=== PATIENT | male | born 1940 | race Caucasian/White ===

== ENCOUNTER 2020-03-13 09:16 | Inpatient (IN) | payer OTHER ==
[~2020-03-13] VITALS: Ht 152.4 cm; Wt 64.4 kg
[2020-03-13 09:18] VITALS: BP 196/112
[2020-03-13 09:36] LABS: BE(vivo) 2.9 mmol/L (-2 to +3); HCO3 34.1 mmol/L (22.0-26.0); PCO2 87.9 mmHg (35.0-45.0); PO2 99.4 mmHg (80.0-100.0); pH 7.207 (7.360-7.450); sO2 95.8 % (92.0-98.0)
[2020-03-13 09:54] LABS: HEMATOCRIT 42.7 % (42.0-52.0); HEMOGLOBIN 14.2 gm/dL (14.0-18.0); MCH 30.4 pg (26.0-34.0); MCHC 33.3 g/dL (28.0-37.0); MCV 91.5 fL (80.0-100.0); RBC 4.66 mil/uL (4.50-6.00); RDW 13.8 % (10.5-14.5); WBC 12.4 thou/uL (4.0-11.0)
[2020-03-13 10:07] LABS: ANION GAP 8 mmol/L (7-16); BUN 18 mg/dL (7-18); CALCIUM 9.3 mg/dL (8.5-10.1); CHLORIDE 101 mmol/L (98-107); CO2 34 mmol/L (21-32); GLUCOSE 188 mg/dL (74-106); POTASSIUM 4.2 mmol/L (3.5-5.1); SODIUM 143 mmol/L (136-145)
[2020-03-13 10:13] LABS: TROPONIN-I <0.06 ng/mL (<0.06)
[2020-03-13] MEDS ORDERED: NORVASC5 M1 PO (10:58)
[2020-03-13] MEDS ORDERED: SYMBICORT80 MCG/4.1 INH (10:59)
[2020-03-13] MEDS ORDERED: FLONASE 0.05%50 MCG NASAL (10:59)
[2020-03-13] MEDS ORDERED: REMERON 30 MG T30 MG PO (11:00)
[2020-03-13] MEDS ORDERED: ENSURE PLUS237 ML PO (11:00)
[2020-03-13] MEDS ORDERED: MELATONIN3 M1 PO (11:00)
[2020-03-13 11:08] LABS: BE(vivo) 3.8 mmol/L (-2 to +3); HCO3 31.5 mmol/L (22.0-26.0); PCO2 60.6 mmHg (35.0-45.0); PO2 74.4 mmHg (80.0-100.0); pH 7.334 (7.360-7.450); sO2 93.7 % (92.0-98.0)
[2020-03-13 12:27] VITALS: BP 113/74
[2020-03-13 19:00] VITALS: BP 146/81
[2020-03-13 19:56] VITALS: BP 172/91
--- NOTE | 2020-03-13 23:00 | EKG ---
[facility] [place] [address] ELECTROCARDIOGRAM REPORT Name: JOSUÉ BRAY Room #: 358- ADM IN M.R.#: [id number] Admission: 03/13/20 Attend Phys: Gerry Penaloza MD Discharge: Date of : 42 Report #: [id number] THIS REPORT FOR: cc: Physician not on staff Physician not on staff Sukhjinder Koo MD [facility] THIS REPORT FOR: //name// [facility] ED Test Date: 2020-03-13 Test Time: 09:57:55 Pat Name: JOSUÉ BRAY Department: Room: [facility] Gender: M Mail Carrier: [facility] : 1940 Requested By: Zach Dickens Order Number: [id number] MD: Sukhjinder Koo Measurements Intervals [place] Rate: 117 P: 84 PA: 184 QRS: 24 QRSD: 127 T: 74 QT: 308 QTc: 430 Interpretive Statements Sinus tachycardia Atrial premature complex Consider right atrial enlargement Artifact in lead(s) I,II,aVF,V1,V2,V3,V4,V5,V6 No previous ECG available for comparison Electronically Signed On 03-13-2020 23:00:08 CDT by Sukhjinder Koo [email or web address] <ELECTRONICALLY SIGNED> By: Sukhjinder Koo MD, FAC 03/13/20 2300 0957 [id number] Sukhjinder Koo MD, [facility] /EPI
--- NOTE | 2020-03-14 03:59 | NUR ---
PT LYING IN BED. DENIES PAIN. VOIDING PER URINAL. RESTING COMFORTABLY. NO NEEDS VOICED. CALL LIGHT WITHIN REACH. FREQUENT OBSERVATION.
[2020-03-14 04:41] VITALS: BP 114/61
[2020-03-14 07:44] VITALS: BP 141/75
[2020-03-14 11:30] VITALS: BP 142/73
--- NOTE | 2020-03-14 15:29 | NUR ---
ASSUMED PATIENT CARE AT 0700. A/O X4 VSS. TOLERATED ON RA. REFUSED FLU SHOT. DC TO HOME NOW.
[2020-03-14 16:45] VITALS: BP 134/73
--- NOTE | 2020-03-14 16:50 | NUR ---
ASSUMED PATIENT CARE AT 0700. A/O X4 TOLERATED ON 3L/NC. NO PE FROM CTA. UP STABBY. PROGRESSING TOWARDS POC GOALS.
[2020-03-14 20:06] VITALS: BP 151/62
[2020-03-15 05:11] VITALS: BP 132/68
[2020-03-15 07:28] VITALS: BP 147/80
[2020-03-15 11:59] VITALS: BP 147/77
--- NOTE | 2020-03-15 15:23 | NUR ---
ASSUMED PATIENT CARE THIS AM AT APPROXIMATELY 0700. PATIENT AWAKE ALERT ORIENTED X4. ON 3LNC AND IN NO ACUTE DISTRESS, ASSESSMENT AND MEDICATIONS CHARTED. PATIENT REFUSED FLU VACCINE THIS AM. STATES THAT HE NEVER TAKES FLU VACCINE. PATIENT VSS. ISOLATION PRECAUTIONS DISCONTINUED AND AWAITING ROOM ASSIGMENT WHEN AVALIABLE. PATIENT TOLERATING MEALS WELL THIS SHIFT. URINATING WELL. NO COMPLAINTS OF PAIN. SOME SOB/ WHEZING NOTED AT REST. STATES BREATHING TREATMENTS HELP WITH SOB. WILL CONTINUE WITH PLAN OF CARE
[2020-03-15 16:17] VITALS: BP 149/79
--- NOTE | 2020-03-15 18:32 | NUR ---
Received pt from [facility], vs stable, came up on the bed. IV fluids continued kept comfortable on the bed. POC followed no signs or verbalizations of distress noted. endorsed to the night nurse.
[2020-03-15 20:10] VITALS: BP 180/94
[2020-03-15 23:45] VITALS: BP 156/80
--- NOTE | 2020-03-16 02:21 | NUR ---
ASSUMED PT CARE AROUND 1930. AXOX4. ELEVATED BP REPORTED AND NEW ORDERS RECEIVED. NO S/S ACUTE DISTRESS NOTED OR REPORTED AT THIS TIME. WILL CONT TO MONITOR FOR ANY CHANGES IN CONDITION.
[2020-03-16 10:43] VITALS: BP 167/90
[2020-03-16 17:03] VITALS: BP 177/73
--- NOTE | 2020-03-16 20:07 | NUR ---
PT A&OX4, VSS, DENIES PAIN. PATIENT CONTINUES ON 3L OF OXYGEN. IV PATENT, PT USES URINAL. NO SIGNS OF DISTRESS. WILL CONTINUE TO MONITOR.
[2020-03-16 20:19] VITALS: BP 140/87
--- NOTE | 2020-03-17 05:31 | NUR ---
Assumed pt care at 1900. A/OX4,VSS.Up with AX1/RW. LS coarse with copius yellow sputum noted;sputum cx obtained. Pt denied pain on assessment. Voiding per urinal. NSR on telemetry. Fall precautions in place,reminded to call for help as needed and agreebla to. Resting quietly at this time w/o distress noted,oxygen on at 3L/NC,will continue to monitor pt.
[2020-03-17 07:59] VITALS: BP 165/90
--- NOTE | 2020-03-17 11:14 | NUR ---
Chart reviewed and case discussed with the care team. Attempted to see the pt in his room;however pt getting an ECHO this morning. PT raiza noted this morning. Pt lives independently in an indep living apt at [facility]. He has home o2 with a baseline of 3liters d/t COPD. He has a rwalker if needed but does not normally use it. He is a&ox4 and able to make his needs known to staff. He is improving and off bipap and on 2-4liters at this time. Covid test neg. Will follow along should a HH referral be indicated at [place].
--- NOTE | 2020-03-17 11:59 | 2DMMODE ---
[address] [place] [address] 2 D/M-MODE ECHOCARDIOGRAM Name: JOSUÉ BRAY Room #: 459-P ADM IN M.R.#: [id number] Admission: 03/13/20 Attend Phys: Gerry Penaloza MD Discharge: Date of : 42 Report #: [id number] THIS REPORT FOR: cc: Physician not on staff Physician not on staff Josh Caraballo MD ~ APPROVED REPORT Study performed: 03/17/2020 09:54:04 EXAM: Comprehensive 2D, Doppler, and color-flow Echocardiogram Patient Location: Bedside Room #: [facility] BSA: 1.75 HR: 78 bpm BP: 165/90 mmHg Rhythm: NSR Other Information Study Quality: Technically Difficult Technically limited study due to lung disease, inability to position patient. Indications Congestive Heart Failure COPD Dyspnea 2D Dimensions IVC: 21.00 mm Aortic Valve AoV Peak Aren.: 1.12 m/s AO Peak Gr.: 4.98 mmHg LVOT Max P.49 mmHg LVOT Max V: 0.79 m/s Mitral Valve E/A Ratio: 0.6 MV Decel. Time: 120.18 ms MV E Max Aren.: 0.76 m/s MV A Aren.: 1.18 m/s MV PHT: 34.85 ms IVRT: 87.66 ms [facility] [place] [address] 2 D/M-MODE ECHOCARDIOGRAM Name: JOSUÉ BRAY Room #: 459-P ADM IN M.R.#: [id number] Admission: 03/13/20 Attend Phys: Robert Powell Discharge: Date of : 42 Report #: [id number] Pulmonary Valve PV Peak Aren.: 1.08 m/s PV Peak Gr.: 4.67 mmHg Tricuspid Valve TR Peak Aren.: 2.65 m/s TR Peak Gr.: 28.10 mmHg PA Pressure: 38.00 mmHg Left Ventricle The left ventricle is normal size. There is normal left ventricular wall thickness. Left ventricular systolic function is low-normal. LVEF is 50%. Grade I - abnormal relaxation pattern. Right Ventricle Right ventricle is at the upper limits of normal. The right ventricular systolic function is normal. Atria The left atrium size is normal. Right atrium is at the upper limits of normal. Aortic Valve The aortic valve is normal in structure. Trace to mild aortic regurgitation. There is no aortic valvular stenosis. Mitral Valve The mitral valve is normal in structure. There is no mitral valve regurgitation noted. No evidence of mitral valve stenosis. Tricuspid Valve The tricuspid valve is normal in structure. There is mild tricuspid regurgitation. Estimated PAP 38 mmHg. Pulmonic Valve The pulmonary valve is normal in structure. There is no pulmonic valvular regurgitation. Great Vessels The aortic root is normal in size. IVC is dilated and collapses >50% with inspiration. Pericardium There is no pericardial effusion. <Conclusion> [facility] [address] [place] [address] 2 D/M-MODE ECHOCARDIOGRAM Name: JOSUÉ BRAY Room #: 459-P ADM IN M.R.#: [id number] Admission: 03/13/20 Attend Phys: Robert Powell Discharge: Date of : 42 Report #: [id number] The left ventricle is normal size. There is normal left ventricular wall thickness. Left ventricular systolic function is low-normal. LVEF is 50%. Right ventricle is at the upper limits of normal. The left atrium size is normal. Trace to mild aortic regurgitation. There is no mitral valve regurgitation noted. There is mild tricuspid regurgitation. Estimated PAP 38 mmHg. <ELECTRONICALLY SIGNED> By: Josh Caraballo MD 03/17/20 1158 1158 57 Josh Caraballo MD /INF
[2020-03-17 13:59] VITALS: BP 165/90
[2020-03-17 15:54] VITALS: BP 165/98
[2020-03-17 16:45] LABS: HEMATOCRIT 43.8 % (42.0-52.0); HEMOGLOBIN 14.9 gm/dL (14.0-18.0); MCH 30.7 pg (26.0-34.0); MCHC 33.9 g/dL (28.0-37.0); MCV 90.5 fL (80.0-100.0); RBC 4.84 mil/uL (4.50-6.00); RDW 13.7 % (10.5-14.5); WBC 8.4 thou/uL (4.0-11.0)
--- NOTE | 2020-03-17 17:04 | NUR ---
FAXED REFERRAL TO [facility] RECEIVED CONFIRMATION AND WILL F/U WITH AGENCY IN THE AM.
[2020-03-17 17:19] LABS: CALCIUM 8.9 mg/dL (8.5-10.1); CREATININE 0.7 mg/dL (0.7-1.3); POTASSIUM 4.9 mmol/L (3.5-5.1)
[2020-03-17 17:32] LABS: BE(vivo) 2.7 mmol/L (-2 to +3); HCO3 30.3 mmol/L (22.0-26.0); PCO2 59.1 mmHg (35.0-45.0); PO2 170.8 mmHg (80.0-100.0)
[2020-03-17 17:33] LABS: pH 7.328 (7.360-7.450)
[2020-03-17 19:30] VITALS: BP 149/67
--- NOTE | 2020-03-17 19:38 | NUR ---
Assumed pt care today, bp elevated managed with medications. On 3 lites of O2 via NC. Dyspnea present . Dr. Dowell came to visit in the pm, ordered labs and placed orders Critical labs called to Dr. Levy. Refused some meals, had dinner, pt stated he is feeling better late in the pm. Received a call from his case worked and she stated he was considering going hospice. Endorsed to the night nurse.
[2020-03-18 06:10] LABS: HEMATOCRIT 38.7 % (42.0-52.0); MCH 30.2 pg (26.0-34.0); MCHC 33.1 g/dL (28.0-37.0); MCV 91.3 fL (80.0-100.0); RBC 4.24 mil/uL (4.50-6.00); RDW 13.5 % (10.5-14.5); WBC 2.7 thou/uL (4.0-11.0)
[2020-03-18 06:18] LABS: HEMOGLOBIN 12.8 gm/dL (14.0-18.0)
[2020-03-18 06:26] LABS: CALCIUM 8.3 mg/dL (8.5-10.1); CREATININE 0.9 mg/dL (0.7-1.3); POTASSIUM 4.3 mmol/L (3.5-5.1)
[2020-03-18 07:39] LABS: BE(vivo) 6.1 mmol/L (-2 to +3); HCO3 33.2 mmol/L (22.0-26.0); PCO2 59.3 mmHg (35.0-45.0); PO2 81.5 mmHg (80.0-100.0); pH 7.366 (7.360-7.450); sO2 95.4 % (92.0-98.0)
--- NOTE | 2020-03-18 07:45 | NUR ---
Assumed pt care at 1900. A/OX4,VSS. Pt verbalized breathing/feeling much better on assessment. Denies pain on assessment. Up with SBA/RW. Fall precauitons in place. Didn't require BIPAP at night,remained on oxygen 3L/NC. New IV reinserted on LUE and IV abts infusing w/o problems. Resting quietly at this time w/o distress noted.
[2020-03-18 08:20] VITALS: BP 154/84
--- NOTE | 2020-03-18 08:31 | EKG ---
[facility] [address] [place] [address] ELECTROCARDIOGRAM REPORT Name: JOSUÉ BRAY Room #: 9- ADM IN M.R.#: [id number] Admission: 03/13/20 Attend Phys: Gerry Penaloza MD Discharge: Date of : 42 Report #: [id number] THIS REPORT FOR: cc: Physician not on staff Physician not on staff Sukhjinder Koo MD [facility] ~ THIS REPORT FOR: //name// [facility] Test Date: 2020-03-17 Test Time: 16:55:46 Pat Name: JOSUÉ BRAY Department: Room: [facility] Gender: M [employer] Web Developer: MARIELA : 1940 Requested By: Kimo Dowell Order Number: [id number] MD: Sukhjinder Koo Measurements Intervals [place] Rate: 97 P: 83 [place]: 184 QRS: 40 QRSD: 96 T: 62 QT: 334 QTc: 425 Interpretive Statements Sinus rhythm VINNIE Compared to ECG 03/13/2020 09:57:55 Sinus tachycardia no longer present Atrial premature complex(es) no longer present Electronically Signed On 03-18-2020 8:31:40 CDT by Sukhjinder Koo [email or web address] <ELECTRONICALLY SIGNED> By: Sukhjinder Koo MD, [facility] 03/18/20 0831 1655 1655 Sukhjinder Koo MD, [facility] /EPI
--- NOTE | 2020-03-18 13:46 | NUR ---
SPOKE WITH CIPRIANO FROM [facility] SHE WILL DO A BEDSIDE VISIT TOMORROW 03/19 AT 0900.
[2020-03-18 15:13] VITALS: BP 168/87
--- NOTE | 2020-03-18 16:20 | NUR ---
CARE TEAM INDICATED THAT PT IS PROGRESSING SLOWLY. [facility] IS TO BE COMING TOMORROW AM AT 9AM TO DO BEDSIDE EVAL AND INFORMATIONAL VISIT WITH PT. IT IS ANTICPATED THAT PT WILL DISCHARGE BACK TO [facility] WITH [facility] OVER THE WEEKEND. CM TO SET UP TRANSPORT. CM TO FOLLOW INDICATED WITH DC PLANNING.
[2020-03-18 19:55] VITALS: BP 147/66
--- NOTE | 2020-03-19 06:43 | NUR ---
VSS-AFEBRILE. LUNGS TIGHT AND DIMINISHED IN ALL PFEIFFER BILATERALLY. REMAINS ON 3LNC WHICH IS ALSO WHAT IS WORN AT HOME. NO C/O PAIN. CALLS APPROPRIATELY FOR ANY NEEDED ASSISTANCE. SMALL, FORMED BM THIS SHIFT.
[2020-03-19 08:15] VITALS: BP 160/85
[2020-03-19 11:58] VITALS: BP 165/90
--- NOTE | 2020-03-19 11:59 | NUR ---
CARE TEAM INDICATED THAT PT WILL LIKELY BE MEDICALLY STABLE TO DISCHARGE HOME BACK TO [facility] TOMORROW Sunday03/20/20. CM MET WITH PT AT BEDSIDE THIS DAY. PT IS AWARE AND AGREEABLE. [facility] MET WITH PT THIS AM AND PT INDICATED THAT HE ISN'T READY FOR HOSPICE SERVICES AT THIS TIME BUT WOULD LIKE TO USE [facility] FOR PT, OT, AND NURSING HH SERVICES. THEY CAN ACCEPT. CM NOTIFIED THEM HIS PCP IS DR. ALEXYS [place]. PT WAS GIVEN SOME CLOTHING TO DC HOME IN. PT WILL NEED TRANSPORT WITH O2 SET UP. HE IS AGREEABLE WITH [facility]. FAX ORDERS TO [facility] AND CALL [facility] ONCE READY. [facility]: P: F: [facility]: PT WILL NEED O2 AT
[2020-03-19 15:44] VITALS: BP 150/79
[2020-03-19 19:21] VITALS: BP 148/77
--- NOTE | 2020-03-19 19:54 | NUR ---
PT A&OX4, VSS, NO PAIN. PATIENT WORKED WITH PT/OT TODAY. HOSPICE IN TO EVALUATE PATIENT. PATIENT WILL GO HOME WITH HOME HEALTH INSTEAD. PATIENT ON 3L O2 BASELINE. NO SIGNS OF DISTRESS. WILL CONTINUE TO MONITOR.
[2020-03-19 23:06] LABS: HIV ANTIBODY Non Reactive (Non Reactive)
--- NOTE | 2020-03-20 06:26 | NUR ---
VSS-AFEBRILE. LUNGS TIGHT AND WHEEZY IN ALL PFEIFFER BILATERALLY. REMAINS ON 3LNC WHICH IS ALSO HOME SETTING. RESTED WELL THROUGH NIGHT WITH FEW NEEDS. NO COMPLAINTS OF PAIN. CALLS APPROPRIATELY FOR ANY NEEDED ASSISTANCE.
[2020-03-20 08:00] VITALS: BP 162/78
[2020-03-20 11:15] LABS: CALCIUM 8.5 mg/dL (8.5-10.1); CREATININE 0.8 mg/dL (0.7-1.3); POTASSIUM 3.7 mmol/L (3.5-5.1)
[2020-03-20 15:40] VITALS: BP 151/87
--- NOTE | 2020-03-20 18:23 | NUR ---
PT ASSESSED AT START OF SHIFT. PT BREATHING EVEN AND UNLABORED. CONJESTED LOOSE COUGH-SOME PRODUCTION AT TIMES. SPECIMEN SENT THIS AM. PT UP WALKING W/ RESP THERAPY. EATING AND DRINKING OK. HAD LOOSE BROWN BM. NO C/O PAIN.
--- NOTE | 2020-03-21 02:28 | NUR ---
VSS-AFEBRILE. REMAINS ON 2LNC AT REST AND 4LNC WITH ACTIVITY. SOA WITH EXERTION. OOB WITH SBA TO USE BSC, NO REPORTED BM THIS SHIFT. NO REPORTED PAIN. CALLS APPROPRIATELY FOR ANY NEEDED ASSISTANCE. FALL PRECAUTIONS IN PLACE.
[2020-03-21 07:39] VITALS: BP 177/86
[2020-03-21 19:12] VITALS: BP 156/86
--- NOTE | 2020-03-21 19:51 | NUR ---
Assumed pt care this am, has a O2 at 2L via NC at rest , then 4L with activity as per the pt. Dr. Penaloza mantioned his O2 sats are ok if they are in between 88 - 90%. SOA on exertion, used the commode, had a BM today. Diet and medicatiosn are well tolerated. POC followed with no signs or distress. JAKUB sheikh we put in by , pt refused to elave and mentioned he is still no ok, spoke to MD. Pt is to stay another day. Endorsed to the night nurse.
--- NOTE | 2020-03-22 03:01 | NUR ---
PATIENT AOX4 MAKES NEEDS KNOWN. PATIENT ON 2L OF OXYGEN O2 SAT IS 94%. NO SOA OR DISTRESS NOTED THIS SHIFT.PATIENT IS CONTIENT AND USES URINAL. FALL PRECAUTION IN PLACE, PATIENT IN BED ASLEEP AT THIS TIME BREATHING REGULAR AND UNLABOURED.
[2020-03-22 08:00] VITALS: BP 146/88
--- NOTE | 2020-03-22 13:39 | NUR ---
PT A&OX4, VSS, AFEBRILE, DENIES PAIN. PATIENT C/O OF BURNING WITH URINATION. OR FOR UA. PATIENT TOLERATING DIET. PATIENT ON 1 L O2 VIA RT SAT AT 94 PERCENT. PATIENT PARTICIPATED IN PT/OT. SINUS RHTHYM ON MONITOR. NO SIGNS OF DISTRESS. WILL CONTINUE TO MONITOR.
--- NOTE | 2020-03-22 14:54 | NUR ---
IT IS ANTICPATED THAT PT WILL BE ABLE TO RETURN TO HIS CT APARTMENT AT [facility] WITH [facility] ONCE MEDICALLY STABLE. PT WILL NEED [facility] ARRANGED AT DISCHARGE WITH HOME O2. [facility]: P: F: [facility]: PT WILL NEED O2 AT
[2020-03-22 15:30] VITALS: BP 150/97
[2020-03-22 17:30] LABS: URINE BILIRUBIN NEGATIVE (Negative); URINE BLOOD NEGATIVE (Negative); URINE CLARITY CLEAR; URINE COLOR YELLOW; URINE GLUCOSE-RANDOM* NEGATIVE (Negative); URINE KETONES NEGATIVE (Negative); URINE LEUKOCYTES NEGATIVE (Negative); URINE NITRITE NEGATIVE (Negative); URINE PROTEIN (DIPSTICK) NEGATIVE (Negative); URINE SPECIFIC GRAVITY 1.015 (1.005-1.035); URINE UROBILINOGEN 0.2 E.U./dl (0.2-1.0)
[2020-03-22 19:30] VITALS: BP 159/97
--- NOTE | 2020-03-23 05:02 | NUR ---
ASSUMED CARE OF PT AT 1900HRS. PT AOX4 AND LETS NEEDS BE KNOWN. FALL PRECAUTION IN PLACE. PT IS ON 1L O2 VIA NC. PT PLACED NPO AT GA FOR PROCEDURE IN THE AM. PT'S PAIN WITH URINATION IS IMPROVING. PT WAS ABLE TO GET COMFORTABLE AND SLEEP PART OF THE SHIFT. VSS AND NO S/S OF ACUTE DISTRESS. WILL CONTINUE TO MONITOR.
[2020-03-23 07:17] LABS: HEMATOCRIT 46.3 % (42.0-52.0); HEMOGLOBIN 15.3 gm/dL (14.0-18.0); MCH 29.9 pg (26.0-34.0); MCV 90.6 fL (80.0-100.0); PLATELET COUNT 259 thou/uL (150-400); RBC 5.11 mil/uL (4.50-6.00); RDW 13.8 % (10.5-14.5); WBC 5.3 thou/uL (4.0-11.0)
[2020-03-23 07:25] LABS: ALBUMIN 3.3 g/dL (3.4-5.0); CALCIUM 9.1 mg/dL (8.5-10.1); CREATININE 0.9 mg/dL (0.7-1.3); POTASSIUM 3.3 mmol/L (3.5-5.1); TOTAL BILIRUBIN 0.5 mg/dL (0.2-1.0); TOTAL PROTEIN 6.3 g/dL (6.4-8.2)
[2020-03-23 08:30] LABS: ABSOLUTE NEUTROPHILS 3.4 thou/uL (1.4-8.2)
[2020-03-23 08:31] LABS: METAMYELOCYTES 2 %
[2020-03-23 08:32] LABS: ANISOCYTOSIS SLIGHT
[2020-03-23 10:04] VITALS: BP 220/121
[2020-03-23 10:41] VITALS: BP 168/96
--- NOTE | 2020-03-23 12:22 | NUR ---
Bronchoscopy done this AM, left unit prior to initial assessment. When returned to unit after procedure HR 114-130, BP 200/121, O2 sats mid 80s on 3L FIO2. Alert, states he is having difficulty breathing. Resp very pronounced 24-28 with subcostal retractions. FIO2 increased, O2 sat increased to mid 90s. Breath sounds with very poor aeration with few barely audible wheezes. machine operator helper and Dr. Khalil notified. Reg HR, tachycardic up to 130s auscultated. Color very pink with brisk capillary and palpable peripheral pulses +2/+4. IV per L forearm, site soft and flat, saline locked. LR dced per verbal order from Dr. Khalil. Incontinent of yellow urine per pad. States it dumas when urinating. Small frequent amts of bright yellow urine. Alert and orientated, answering questions appropriately despite being SOB. Dr. Khalil here examining pt. States considering hospice, will order Mg, prednisone and xanax. Report given. per urinal. Active bowel sounds over soft, flat abdomen.
--- NOTE | 2020-03-23 15:14 | NUR ---
CARE TEAM INDICATED THAT PT ISN'T MEDICALLY STABLE TO DC BACK TO [facility] THIS DAY. PT IS NOW CONSENTING TO HOSPICE SERVICES. CM NOTIFIED CIPRIANO WITH [facility] AND SHE WILL VISIT WITH PT AGAIN TOMORROW AM SO THAT THEY CAN ORDER ANY NEEDED EQUIPTMENT. CM TO FOLLOW INDICATED WITH DC PLANNING.
[2020-03-23 16:59] VITALS: BP 136/94
[2020-03-23 19:23] VITALS: BP 135/72
--- NOTE | 2020-03-23 20:31 | NUR ---
ASSUMED CARE OF PATIENT AT 1200, REPORT RECEIVED FROM RICK VICTORIA/THERESE. PATIENT ALERT AND ORIENTED. PATIENT DENIES PAIN THIS SHIFT. PATIENT WENT DOWN FOR BRONCH THIS AM, WHEN PATIENT ARRIVED BACK FROM PROCEDURE, HE HAD ELEVATED B/P, LABORED BREATHING, ELEVATED HR. DR PLASCENCIA WAS NOTIFIED, HE WAS ON THE UNIT. NEW ORDER FOR XANAX 0.25 MG TID ORDERED. RT/DAPHNIE SAW THE PATIENT AROUND 1100 AND HE RECEIVED BREATHING TREATMENT. AFTER PATIENT RECEIVED XANAX, HE WENT TO SLEEP, BREATHING IMPROVED, O2 AT 2-3 LITERS/NC WAS IN PLACE. B/P WAS DOWN BY THE END OF THE SHIFT 140/78. WILL CONTINUE TO MONITOR.
[2020-03-23 23:55] VITALS: BP 161/88
--- NOTE | 2020-03-24 04:22 | NUR ---
ASSUMED CARE OF PT AT 1900HRS. PT AOX3-4 AND LETS NEEDS BE KNOWN. FALL PRECAUTION IN PLACE. O2 VIA NC CONTINUED AT 1L. PT DENIES NAUSEA. PT STILL REPORTS PAIN WITH URINATION. PT WAS ABLE TO GET COMFORTABLE AND SLEEP PART OF THE SHIFT. VSS AND NO S/S OF ACUTE DISTRESS. WILL CONTINUE TO MONITOR.
[2020-03-24 09:16] VITALS: BP 165/90
[2020-03-24] MEDS ORDERED: CIPROFLOXACIN250 M2 PO (09:36)
[2020-03-24] MEDS ORDERED: IPRAT-ALBUT 0.5-3 ML INH (09:37)
[2020-03-24] MEDS ORDERED: CARDIZEM CD 18180 M3 PO (09:38)
[2020-03-24] MEDS ORDERED: ALPRAZOLAM 0.0.25 M1 PO (09:38)
[2020-03-24] MEDS ORDERED: PREDNISONE 5 MG5 M1 PO (09:39)
[2020-03-24 10:07] VITALS: BP 165/90
[2020-03-24 11:24] VITALS: BP 158/83
--- NOTE | 2020-03-24 12:16 | NUR ---
CARE TEAM INDICATED THAT PT WILL BE MEDICALLY STABLE TO DISCHARGE BACK TO [facility] WITH [facility] TOMORROW Sunday03/25/20. CIPRIANO WITH [facility] MET WITH PT THIS AM AND SIGNED ADMISSION CONSENTS. CM NOTIFIED THEM THAT PT WILL NEED HOME O2 AND A NEBULIZER AT THIS TIME. ORDERS TO BE FAXED. [facility] IS GETTING SOME OF PT'S PERSONAL BELONGINGS. CM TO [facility]ANGED [facility] FOR DC TRANSPORT WITH O2. CM TO FOLLOW INDICATED WITH DC PLANNING.
[2020-03-24 13:15] LABS: URINE BILIRUBIN NEGATIVE (Negative); URINE BLOOD NEGATIVE (Negative); URINE CLARITY CLEAR; URINE COLOR YELLOW; URINE GLUCOSE-RANDOM* NEGATIVE (Negative); URINE KETONES NEGATIVE (Negative); URINE LEUKOCYTES NEGATIVE (Negative); URINE NITRITE NEGATIVE (Negative); URINE PROTEIN (DIPSTICK) NEGATIVE (Negative); URINE UROBILINOGEN 0.2 E.U./dl (0.2-1.0)
--- NOTE | 2020-03-24 16:06 | PATH ---
[facility] [address] [place] [address] PATHOLOGY RPT PROCEDURE Name: JOSUÉ BRAY Room #: 459-P ADM IN M.R.#: [id number] Admission: 03/13/20 Date of : 42 Discharge: Report #: [id number] Path Case #: [id number] Note [facility] Accession Number: [id number] TESTS RESULT FLAG UNITS REF RANGE LAB Clinician Provided Cytology Information No. of containers..01 Other (Miscellaneous) Source: BAL LUIS ALFREDO DIAGNOSIS: 02 BAL LUIS ALFREDO NEGATIVE FOR MALIGNANT EPITHELIAL CELLS. REACTIVE BRONCHIAL CELLS ARE PRESENT. PULMONARY MACROPHAGES PRESENT, INDICATIVE OF LOWER RESPIRATORY TRACT SAMPLING. THIS INTERPRETATION INCLUDES EVALUATION OF A CELL BLOCK. DEGENERATIVE CHANGES ALONG WITH INFLAMMATION, FAVOR REACTIVE ATYPIA. Pathologist ICD10: 02 J44.9 Signed out by: 02 Deena Rodrigues MD, Pathologist NPI- [id number] Performed by: Baljinder Fagan, Signals Collector/Analyst ([facility]) Gross description: 01 30ML, RED, 1 TP /LCS 03/23/2020 1615 Local FLAG LEGEND: L-Low Normal,H-High Normal,LL-Alert Low,HH-Alert High <-Panic Low,>-Panic High,A-Abnormal,AA-Critical Abnormal Performed at: [address] [place] [address] García Sniha MD, [address] [address] Deena Rodrigues MD, Specimen Comment: A courtesy copy of this report has been sent to [phone], [phone]- Specimen Comment: [phone] Specimen Comment: Report sent to DR AMBROCIO / DR KAMARA Performed at: [address], [place], [place] [id number] [address] [address] PATHOLOGY RPT PROCEDURE Name: JOSUÉ BRAY Room #: 459-P [facility] IN M.R.#: [id number] Admission: 03/13/20 Date of : 42 Discharge: Report #: [id number] Path Case #: [id number] MD García Sinha MD Phone: [phone]
--- NOTE | 2020-03-24 16:43 | NUR ---
ASSUMED CARE OF PATIENT AT SHIFT CHANGE. ASSESSMENT CHARTED. MEDICATIONS ADMINISTERED PER JUL. VSS. PATIENT IS A&OX3-4 AND MAKES NEEDS KNOWN. C/O SHORTNESS OF AIR UPON EXCERTION, AMBULATION AND HAVING BM. NC LITER FLOW AT 3L PER PATIENT REQUEST(PRN). UP SBA W NOTED WEAKNESS. PATIENTS INTAKE IS FAIR TODAY. DENIES N/V/D. HAD 3 BM'S TODAY, SOFT/FORMED. DENIES PAIN BUT DOES DISPLAY ANXIETY W SOA EPISODES. ALPRAZOLAM ADMINISTERED AND ANXIETY DECREASED. PATIENT SEEN BY HOSPICE CM; TO D/C TOMORROW 03/25 AND CONTUNUE WITH HOSPICE HH. VOICES NO OTHER NEEDS AT THIS TIME. FALL PRECAUTIONS IN PLACE. WILL CONTINUE TO MONITOR
[2020-03-24 19:13] VITALS: BP 182/70
--- NOTE | 2020-03-24 19:29 | NUR ---
I AGREE WITH NURSING ASSESSMENT AND NURSING NOTE DONE BY MARIAN/IRIDOLOGIST.
--- NOTE | 2020-03-25 02:39 | NUR ---
ASSUMED CARE OF PT AT 1900HRS. PT AOX3-4 AND LETS NEEDS BE KNOWN. FALL PRECAUTION IN PLACE. PT USES O2 PRN INSTRUCTED. PT STILL REPORTS PAIN WITH URINATION BUT IT HAS IMPROVED WITH THE PYRIDIUM. PT WAS ABLE TO GET COMFORTABLE AND SLEEP PART OF THE SHIFT. VSS AND NO S/S OF ACUTE DISTRESS. WILL CONTINUE TO MONITOR.
[2020-03-25 07:51] VITALS: BP 128/71
--- NOTE | 2020-03-25 10:32 | NUR ---
CARE TEAM INDICATED THAT PT IS MEDICALLY STABLE TO DISCHARGE BACK TO [facility] WITH [facility] THIS DAY. [facility] WILL HAVE HOME O2 AND A NEBULIZER DELIVERED TO PT'S APARTMENT BY 12:00. CM FAXED THEM ORDERS ALREADY. TRANSPORT ARRANGED [facility]IA [facility] WITH 3L O2 BETWEEN [id number]. CM NOTIFIED [facility] OF TIME OF TRANSPORT. PT IS ALSO AWARE AND AGREEABLE. NO OTHER CM INTERVENTION INDICATED. CASE CLOSED.
--- NOTE | 2020-03-25 11:54 | NUR ---
ASSUMED PATIENT CARE AT 0700. ASSESSMENT CHARTED. MEDICATION ADMINISTERED PER EMAR. VSS. PATIENT IS A&OX4 AND MAKES NEEDS KNOW. PATIENT TOLERATED BREAKFAST WELL AND HAD A BM THIS AM. PATIENT GETS UP WITH A 1 PERSON ASSIST TO THE BSC USING O2 ON 3L HE DESATS W EXERTION. PT WORKED WITH PATIENT TO DETERMINE HOME NEEDS. PATIENT CONTINUES TO C/O BURNING WITH URINATION AND COUGH. PRN EXPECTORANT AND SCHEDULED ANALGESIC ADMINISTERED PER PATIENT REQUEST. PATIENT IS SCHEDULED TO GO BACK TO [facility] [address] THIS DAY 03/25 AT 1300. PRESCRIPTIONS ARE AVAILABLE. WILL CONTINUE TO MONITOR.
[2020-03-25 12:00] VITALS: BP 165/90
--- NOTE | 2020-03-25 16:31 | NUR ---
PATIENT LEFT UNIT AT APPROX [address] TRANSPORT SVC. ALL BELONGINGS W PATIENT. ON O2, 3L.
[2020-03-25 16:33] VITALS: BP 165/90
--- NOTE | 2020-03-25 16:39 | NUR ---
I AGREE WITH NURSING ASSESSMENT AND NURSING NOTE DONE BY MARIAN/CLINICAL QUALITY RN.
[2020-03-25 21:05] LABS: HISTOPLASMA MYCELIAL-CF Negative (Neg:<1:2)
== END 2020-03-25 16:32 | disposition hospice, home (50) | DRG 871 ==
LOC: ER 09:16 → EDBD 09:16 → 4W 11:29 → 3W 11:29 → EROBS 11:29 → 3W 19:15 → 4W 03-15 18:07
PROVIDERS: Emergency Medicine; Hospitalist; Internal Medicine Pulmonary Disease; Pediatrics; Specialist; ADMIT Hospitalist; ATTEND Hospitalist
PROC: 5A09357 Assistance with Respiratory Ventilation, Less than 24 Consecutive Hours, Continuous Positive Airway Pressure (ICD-10-PCS; principal; 2020-03-13)
PROC: 0B9G8ZX Drainage of Left Upper Lung Lobe, Via Natural or Artificial Opening Endoscopic, Diagnostic (ICD-10-PCS; 2020-03-23)
DX: A41.9 Sepsis, unspecified organism (principal); J96.22 Acute and chronic respiratory failure with hypercapnia; J18.9 Pneumonia, unspecified organism; J96.21 Acute and chronic respiratory failure with hypoxia; E87.3 Alkalosis; I10 Essential (primary) hypertension; Z20.828 Contact with and (suspected) exposure to other viral communicable diseases; J43.9 Emphysema, unspecified; R65.20 Severe sepsis without septic shock; J42 Unspecified chronic bronchitis; Z79.899 Other long term (current) drug therapy
CPT/HCPCS: 10040; 10045; 10879; 62110; 62900; 70005

== ENCOUNTER 2020-03-28 02:57 | Emergency (ER) | payer OTHER ==
[~2020-03-28] VITALS: Ht 175.3 cm; Wt 74.8 kg
[~2020-03-28 02:57] MED LIST: ALPRAZOLAM 0.0.25 M1 PO; CARDIZEM CD 18180 M3 PO; CIPROFLOXACIN250 M2 PO; ENSURE PLUS237 ML PO; FLONASE 0.05%50 MCG NASAL; IPRAT-ALBUT 0.5-3 ML INH; MELATONIN3 M1 PO; NORVASC5 M1 PO; PREDNISONE 5 MG5 M1 PO; REMERON 30 MG T30 MG PO; SYMBICORT80 MCG/4.1 INH
[2020-03-28 04:41] VITALS: BP 158/85
== END 2020-03-28 06:34 | disposition home or self-care (01) ==
LOC: ER 02:57
DX: J44.9 Chronic obstructive pulmonary disease, unspecified (principal); Z79.899 Other long term (current) drug therapy